=== PATIENT | male | born 1960 | race Caucasian/White ===

== ENCOUNTER 2017-09-06 11:25 | Observation (INO) ==
[2017-09-06 12:01] LABS: Hemoglobin 15.7 g/dL (12.9-16.9); Mean Corpuscular HGB Conc 33.4 g/dL (31.6-35.5); Mean Corpuscular Hemoglobin 29.5 pg (28.0-33.3); Mean Corpuscular Volume 88.2 fL (83.0-100.0); Mean Platelet Volume 10.1 fL (9.4-12.4); Platelet Count 199 K/mcL (140-400); Red Blood Count 5.33 M/mcL (4.19-5.50); Red Cell Distribution Width 13.1 % (11.5-14.5)
[2017-09-06 12:12] LABS: Bilirubin,Urine Negative (Negative); Blood,Urine Moderate (Negative); Clarity,Urine Clear (Clear); Color,Urine Yellow (Yellow); Glucose,Urine (UA) Normal (Normal); Ketones,Urine 15 mg/dL (Negative); Leukocyte Esterase,Urine Negative (Negative); Nitrite,Urine Negative (Negative); Protein,Urine Negative (Neg-Trace); Specific Gravity,Urine 1.016 (1.010-1.025); Urobilinogen,Urine Normal (Normal)
[2017-09-06 12:29] LABS: Squamous Epithelial Cell,Urine Few per lpf (None-Few)
[2017-09-06 12:33] LABS: Albumin 4.5 g/dL (3.5-5.7); Albumin/Globulin Ratio 1.6 (1.1-2.2); Bilirubin,Direct 0.1 mg/dL (0.0-0.2); Bilirubin,Indirect 0.6 mg/dL (0.0-1.2); Bilirubin,Total 0.7 mg/dL (0.3-1.0); Calcium 9.6 mg/dL (8.6-10.3); Globulin 2.9 g/dL (2.4-3.5); Potassium 4.3 mEq/L (3.5-5.1); Total Protein 7.4 g/dL (6.4-8.9)
[2017-09-06] MEDS ORDERED: 0.9 % Sodium Chloride 1,000 ML IVC ONE (12:50)
--- NOTE | 2017-09-06 12:58 | Emergency Department Note ---
Disposition Clinical Impression: Acute kidney injury, Nephrolithiasis, Intractable pain, Vomiting, Leukocytosis Disposition: Admitted As Inpatient Condition: Good Referrals: Jenni Juarez CNP [Primary Care Provider] - Forms: ED Satisfaction Letter, Work/School Release Abdominal Pain HPI - General Chief Complaint: ED Abdominal Pain Stated Complaint: kidney stones Time Seen by Provider: 09/06/17 11:53 Source: patient, family Mode of arrival: ambulatory Limitations: no limitations Nursing Notes Reviewed: Yes Vital Signs Reviewed: Yes - History of Present Illness HPI Narrative: Patient presents to the ED with right flank pain. He was seen at [facility] 2 or 3 days ago for right flank pain that onset a few days prior. Was diagnosed with a kidney stone and discharged home. He presents today for new and worsening pain. Right flank, radiates to the right lower quadrant. Associated with nausea and vomiting. No fever, chills, chest pain or shortness of breath. Does have a previous history of kidney stones but did not require retrieval and this was 8 years ago. He is otherwise healthy. Pain Scale: 9 - Related Data Home Medications Medication Instructions Recorded Confirmed Albuterol Sulfate [Albuterol 1 - 2 puff IH Q4H PRN 09/06/17 09/06/17 Inhaler] Celecoxib [Celebrex] 200 mg PO DAILY 09/06/17 09/06/17 Fluticasone/Salmeterol [Advair 1 puff IH BID 09/06/17 09/06/17 250-50 Diskus] HYDROcodone/Acet 5/325 mg [Ary 1 tab PO Q4H PRN 09/06/17 09/06/17 5-325 mg] Ondansetron HCl 4 mg PO TID PRN 09/06/17 09/06/17 Tamsulosin HCl [Flomax] 0.4 mg PO DAILY 09/06/17 09/06/17 cephALEXin [Keflex] 500 mg PO QID 09/06/17 09/06/17 Allergies Allergy/AdvReac Type Severity Reaction Status Date / Time No Known Allergies Allergy Verified 09/06/17 13:56 Review of Systems: As reviewed in the HPI. All other systems reviewed are negative or normal. Abdominal Pain PMH - Past Medical History Medical history: Reports: asthma Male Surgical History: Reports: no surgical history Psychiatric history: Reports: no psych history - Social History Smoking status: Never smoker Alcohol use: Reports: none Drug use: Reports: none Physical Exam - General Limitations: no limitations General appearance: alert, anxious - Respiratory Respiratory exam: Present: normal lung sounds bilaterally - Cardiovascular Cardiovascular exam: Present: regular rate, normal rhythm, normal heart sounds - Abdominal Exam Abdominal exam: Present: soft, Non-Tender. Absent: tenderness, distention, guarding, rebound, rigidity - Extremities Exam Extremities exam: Present: normal inspection, full ROM. Absent: tenderness, pedal edema - Back Exam Back exam: Present: CVA tenderness (R) - Neurological Exam Neurological exam: Present: alert, oriented X3 - Psychiatric Psychiatric exam: Present: anxious - Skin Skin exam: Present: warm, dry, intact, normal color Course Course Narrative: Patient presenting with right-sided flank pain, known kidney stone, but pain is worse. Labs show any Eye we will repeat his CT since we do not have access to the one at [facility]. - Reevaluation(s) Reevaluation #1: CT is back and shows a 2 x 5 mm partially obstructing right UVJ stone. This is associated with any Type. He spoke with on-call urologist, Dr. White. He was agreeable with admission to the hospitalist service and likely the patient will need stent placement. Time: 13:52 Vital Signs Temperature 97.7 F 09/06/17 11:27 Pulse Rate 105 09/06/17 11:27 Respiratory Rate 22 09/06/17 11:27 Blood Pressure 137/85 09/06/17 11:27 O2 Sat by Pulse Oximetry 97 09/06/17 11:27 Temperature 97.7 F 09/06/17 11:27 Pulse Rate 105 09/06/17 11:27 Respiratory Rate 22 09/06/17 11:27 Blood Pressure 137/85 09/06/17 11:27 O2 Sat by Pulse Oximetry 97 09/06/17 11:27 Oxygen Delivery Oxygen Delivery Room Air Abdominal Pain - Lab Data Result diagrams: 09/06/17 11:40 09/06/17 11:40 Lab Results 09/06/17 09/06/17 09/06/17 Range/Units 11:40 11:40 12:00 WBC 14.9 H (4.3-11.1) K/mcL RBC 5.33 (4.19-5.50) M/mcL Hgb 15.7 (12.9-16.9) g/dL Hct 47.0 (37.5-50.1) % MCV 88.2 (83.0-100.0) fL MCH 29.5 (28.0-33.3) pg MCHC 33.4 (31.6-35.5) g/dL RDW 13.1 (11.5-14.5) % Plt Count 199 (140-400) K/mcL MPV 10.1 (9.4-12.4) fL Sodium 136 (136-145) mEq/L Potassium 4.3 (3.5-5.1) mEq/L Chloride 102 (98-107) mEq/L Carbon Dioxide 24 (23-29) mEq/L BUN 25 H (6-20) mg/dL Creatinine 2.02 H (0.70-1.30) mg/dL Est GFR ( Amer) 42 L (> 60) Est GFR (Non-Af Amer) 34 L (> 60) BUN/Creatinine Ratio 12 (6-26) Glucose 123 H (70-105) mg/dL Calculated Osmolality 288 (280-300) Calcium 9.6 (8.6-10.3) mg/dL Total Bilirubin 0.7 (0.3-1.0) mg/dL Direct Bilirubin 0.1 (0.0-0.2) mg/dL Indirect Bilirubin 0.6 (0.0-1.2) mg/dL AST 21 (13-39) Units/L ALT 27 (7-52) Units/L Alkaline Phosphatase 97 (34-104) Units/L Serum Total Protein 7.4 (6.4-8.9) g/dL Albumin 4.5 (3.5-5.7) g/dL Globulin 2.9 (2.4-3.5) g/dL Albumin/Globulin Ratio 1.6 (1.1-2.2) Lipase 33 (11-82) Units/L Urine Color Yellow (Yellow) Urine Clarity Clear (Clear) Urine pH 6.0 (5.0-8.0) pH Units Ur Specific [place] 1.016 (1.010-1.025) Urine Protein Negative (Neg-Trace) mg/dL Urine Glucose (UA) Normal (Normal) mg/dL Urine Ketones 15 H (Negative) mg/dL Urine Blood Moderate H (Negative) Urine Nitrite Negative (Negative) Urine Bilirubin Negative (Negative) Urine Urobilinogen Normal (Normal) mg/dL Ur Leukocyte Esterase Negative (Negative) Urine Microscopic RBC 3-5 H (0-3) per hpf Ur Squamous Epith Cells Few (None-Few) per lpf S.B.A.R. - S.Erick.A.Cristal Situation: Demographics, MOA Background: Presenting Complaint, Relevant PMH, Meds, & Allergies Assessment: Vital Signs, Course and respsone to treatment, Exam Concerns, Patient/Family Expectation, Pertinant Lab Results, Outstanding Labs Recommendation: Recommendation based on pending studies, treatments, or consults S.B.A.RMary Report Given to: Dr. Darin Arevalo Repor Time: 14:19
[2017-09-06] MEDS ORDERED: *HR* HYDROmorphone (PF) 1 MG/ML SYRINGE IVP ONE (13:22)
[2017-09-06] MEDS ORDERED: Ondansetron 4 MG/2 ML VIAL IVP ONE (13:22)
--- NOTE | 2017-09-06 14:03 | Emergency Department Note ---
Disposition Clinical Impression: Acute kidney injury, Nephrolithiasis, Intractable pain, Vomiting, Leukocytosis Disposition: Admitted As Inpatient Referrals: Jenni Juarez CNP [Primary Care Provider] - Forms: ED Satisfaction Letter, Work/School Release General Adult HPI - General Chief complaint: ED Abdominal Pain Stated complaint: kidney stones Time Seen by Provider: 09/06/17 11:53 Source: patient, family Mode of arrival: ambulatory Limitations: no limitations - History of Present Illness Pain Scale: 9 - Related Data Home Medications Medication Instructions Recorded Confirmed Albuterol Sulfate [Albuterol 1 - 2 puff IH Q4H PRN 09/06/17 09/06/17 Inhaler] Celecoxib [Celebrex] 200 mg PO DAILY 09/06/17 09/06/17 Fluticasone/Salmeterol [Advair 1 puff IH BID 09/06/17 09/06/17 250-50 Diskus] HYDROcodone/Acet 5/325 mg [[place] 1 tab PO Q4H PRN 09/06/17 09/06/17 5-325 mg] Ondansetron HCl 4 mg PO TID PRN 09/06/17 09/06/17 Tamsulosin HCl [Flomax] 0.4 mg PO DAILY 09/06/17 09/06/17 cephALEXin [Keflex] 500 mg PO QID 09/06/17 09/06/17 Allergies Allergy/AdvReac Type Severity Reaction Status Date / Time No Known Allergies Allergy Verified 09/06/17 13:56 Past Medical History - Past Medical History Medical history: Reports: asthma Psychiatric history: Reports: no psych history - Social History Smoking Status: Never smoker Smokeless Tobacco Status: No Alcohol use: Reports: none Drug use: Reports: none Physical Exam - General Limitations: no limitations General appearance: alert, anxious Course Vital Signs Temperature 97.7 F 09/06/17 11:27 Pulse Rate 105 09/06/17 11:27 Respiratory Rate 22 09/06/17 11:27 Blood Pressure 137/85 09/06/17 11:27 O2 Sat by Pulse Oximetry 97 09/06/17 11:27 Temperature 97.7 F 09/06/17 11:27 Pulse Rate 105 09/06/17 11:27 Respiratory Rate 22 09/06/17 11:27 Blood Pressure 137/85 09/06/17 11:27 O2 Sat by Pulse Oximetry 97 09/06/17 11:27 Oxygen Delivery Oxygen Delivery Room Air Medical Decision Making - Lab Data Result diagrams: 09/06/17 11:40 09/06/17 11:40 Lab Results 09/06/17 09/06/17 09/06/17 Range/Units 11:40 11:40 12:00 WBC 14.9 H (4.3-11.1) K/mcL RBC 5.33 (4.19-5.50) M/mcL Hgb 15.7 (12.9-16.9) g/dL Hct 47.0 (37.5-50.1) % MCV 88.2 (83.0-100.0) fL MCH 29.5 (28.0-33.3) pg MCHC 33.4 (31.6-35.5) g/dL RDW 13.1 (11.5-14.5) % Plt Count 199 (140-400) K/mcL MPV 10.1 (9.4-12.4) fL Sodium 136 (136-145) mEq/L Potassium 4.3 (3.5-5.1) mEq/L Chloride 102 (98-107) mEq/L Carbon Dioxide 24 (23-29) mEq/L BUN 25 H (6-20) mg/dL Creatinine 2.02 H (0.70-1.30) mg/dL Est GFR ( Amer) 42 L (> 60) Est GFR (Non-Af Amer) 34 L (> 60) BUN/Creatinine Ratio 12 (6-26) Glucose 123 H (70-105) mg/dL Calculated Osmolality 288 (280-300) Calcium 9.6 (8.6-10.3) mg/dL Total Bilirubin 0.7 (0.3-1.0) mg/dL Direct Bilirubin 0.1 (0.0-0.2) mg/dL Indirect Bilirubin 0.6 (0.0-1.2) mg/dL AST 21 (13-39) Units/L ALT 27 (7-52) Units/L Alkaline Phosphatase 97 (34-104) Units/L Serum Total Protein 7.4 (6.4-8.9) g/dL Albumin 4.5 (3.5-5.7) g/dL Globulin 2.9 (2.4-3.5) g/dL Albumin/Globulin Ratio 1.6 (1.1-2.2) Lipase 33 (11-82) Units/L Urine Color Yellow (Yellow) Urine Clarity Clear (Clear) Urine pH 6.0 (5.0-8.0) pH Units Ur Specific [place] 1.016 (1.010-1.025) Urine Protein Negative (Neg-Trace) mg/dL Urine Glucose (UA) Normal (Normal) mg/dL Urine Ketones 15 H (Negative) mg/dL Urine Blood Moderate H (Negative) Urine Nitrite Negative (Negative) Urine Bilirubin Negative (Negative) Urine Urobilinogen Normal (Normal) mg/dL Ur Leukocyte Esterase Negative (Negative) Urine Microscopic RBC 3-5 H (0-3) per hpf Ur Squamous Epith Cells Few (None-Few) per lpf Attestation Statement - Attestation Attestation: I examined this patient and my medical decision-making was reviewed with the Resident Physician, Dr. Mar. I agree with the documented findings, disposition and treatment plan as described except to the extent set forth below. Patient is a 57-year-old white male who was seen at [facility] evaluated to 3 days ago for right-sided flank pain and was diagnosed with kidney stone. Patient was discharged home with medical management. Patient returns today with worsening right flank pain nausea and vomiting. Patient denies any difficulty urinating, no bowel changes, no fevers or chills, no change in the location of his pain. I agree with patient's physical exam findings as documented. Patient was in severe pain and retching on arrival so IV was established meds were provided for pain relief. Patient labs show AK I that is new, and CT shows obstructing stone in the right UVJ with moderate perinephric edema. Case was discussed with urology occupational therapy technician and they agreed to consult on the patient patient will be hospitalized to the hospitalist service for further evaluation and management.
[2017-09-06] MEDS ORDERED: *HR* Morphine 2 MG/ML SYRINGE IVP ONE (14:19)
[2017-09-06] MEDS ORDERED: Hyoscyamine 0.5 MG/ML MLS IVP ONE (14:20)
[2017-09-06] MEDS ORDERED: Naloxone 0.4 MG/ML INJ IVP PRN (16:43)
--- NOTE | 2017-09-06 16:49 | Internal Med History&Physical ---
Date of Encounter: 09/06/17 Time of Encounter: 16:43 Internal Medicine - H&P: HPI Admitted From: Home Plans for Post Hospital Care: Home History of present illness: Mr. Rodriguez is a 57 year old male with history of renal stone came to ER with worsening of right flank pain. He was seen at [facility] 2 or 3 days ago for right flank pain and he Was diagnosed with a kidney stone and discharged home. Right flank pain 10 x 10 in severity, radiates to the right lower quadrant and associated with nausea vomiting but denied fever chills chest pain shortness of breath. In ER initial lab with leukocytosis, raised creatinine and CT abdomen with finding of 2 x 5 mm partially obstructing right UVJ stone with right ureter of hydronephrosis. Your physician spoke with on-call urologist, Dr. White. He was agreeable with admission to the hospitalist service and likely the patient will need stent placement. Your physician called on-call hospitalists for the admission with diagnosis of KEVIN, obstructive uropathy. Recently Keflex was restarted on OPD basis. Patient denies headache, dizziness, diarrhea but has constipation and also feels bloated stomach. Past Med Surg Social Fam HX - Past Medical History Medical history: asthma, other Psychiatric history: no psych history - Social History Smoking Status: Never smoker Smokeless Tobacco Status: No Alcohol use: none Drug use: none Internal Medicine - H&P: Meds Albuterol Sulfate [Albuterol Inhaler] 1 - 2 puff IH Q4H PRN 09/06/17 [History] Celecoxib [Celebrex] 200 mg PO DAILY 09/06/17 [History] Fluticasone/Salmeterol [Advair 250-50 Diskus] 1 puff IH BID 09/06/17 [History] HYDROcodone/Acet 5/325 mg [[place] 5-325 mg] 1 tab PO Q4H PRN 09/06/17 [History] Ondansetron HCl 4 mg PO TID PRN 09/06/17 [History] Tamsulosin HCl [Flomax] 0.4 mg PO DAILY 09/06/17 [History] cephALEXin [Keflex] 500 mg PO QID 09/06/17 [History] 3 Allergy/AdvReac Type Severity Reaction Status Date / Time No Known Allergies Allergy Verified 09/06/17 13:56 All Systems PM: A 10-system review of systems was performed and is negative for pertinent findings except as documented above in the HPI. - Constitutional Vitals: Temp Pulse Resp BP Pulse Ox 97.6 F 87 18 153/94 97 09/06/17 16:02 09/06/17 16:02 09/06/17 16:02 09/06/17 16:02 09/06/17 16:02 Exam: General appearance: Moderate distress due to pain, restless, A&O X 3 Head exam: Atraumatic Eye exam: EOMI, PERRLA ENT exam: Moist oral mucosa Neck nontender, supple Respiratory exam: Clear to auscultation bilaterally Cardiovascular exam: Regular rate and rhythm, no systolic murmur Abdominal exam: Soft, right flank tenderness, nondistended, positive bowel sounds Extremities exam: No calf tenderness, no pedal edema Present: Skin-no rash, warm, dry, intact Neurological exam: Alert, awake, oriented 3, CN II-XII intact, no focal deficits. No facial droop. Normal speech. Normal gait. Romberg sign negative Internal Med - H&P Results - Labs CBC & Chem 7: 09/06/17 11:40 09/06/17 11:40 - Assessment and plan (1) Obstructive uropathy Current Visit: Yes Status: Acute Assessment and plan: Due to renal a stone. Symptomatic treatment with IV fluid, pain management, antiemetic and consultation with urologist who is planning to take patient OR tomorrow morning. CT abdomen reviewed. (2) Acute kidney injury Current Visit: Yes Status: Acute Assessment and plan: Most likely due to above. IV fluid, a strict I&O's. Repeat BMP. Avoid nephrotoxic drug. (3) Leukocytosis Current Visit: Yes Status: Acute Assessment and plan: Could be possible UTI or a stress related. Started Rocephin. Urine culture sent. Qualifiers: Leukocytosis type: unspecified Qualified Code(s): D72.829 - Elevated white blood cell count, unspecified (4) DVT prophylaxis Current Visit: Yes Status: Acute Assessment and plan: SCDs. - Time Spent With Patient Total time spent is greater than 50% in coordination of care (as documented) at patient's floor/unit and/or counseling patient: 25 - 35 minutes
--- NOTE | 2017-09-06 16:53 | Urology - Consult Note ---
Date of Encounter: 09/06/17 Time of Encounter: 16:51 - Assessment and Plan (1) Acute kidney injury Current Visit: Yes Status: Acute Assessment and plan: Avoid nephrotoxins. Appreciate internal medicine support. (2) Ureteral stone Current Visit: Yes Status: Acute Assessment and plan: 57-year-old man with a distal right ureteral stone. He is being admitted for pain control and monitoring of his creatinine. We will strain his urine overnight to see if he passes a stone. Otherwise, if he cannot pass a stone then I would proceed with a right ureteroscopy, laser lithotripsy, and stent placement. He was informed of the risks of the procedure including but not limited to bleeding, infection, injury to other structures, need for further procedures, stent irritation, incomplete fragmentation, ureteral perforation, need for nephrostomy tube, need for open repair, risks unforeseen, and the risk of anesthesia. He is willing to proceed. Urology CN:HPI Consult date: 09/06/17 Reason for consult Urology: Other (Right ureteral stone) History of present illness: 57-year-old man presents with a 1-2 week history of right flank pain. He tried taking Azo. This did not improve his pain. He was seen at the [facility]. In the emergency department no imaging was performed. He then came to [facility]. A CT scan was obtained which showed a 2 x 5 mm distal right ureteral stone. He also had a left renal stone. He has been admitted for further care. His creatinine was elevated to 2. He is still having the right flank pain which is rating to his groin. It is sharp. He denies having any history of previous stone surgery. He says he has passed stones previously. Past Med Surg Social Fam HX - Past Medical History Medical history: asthma, other Psychiatric history: no psych history - Social History Smoking Status: Never smoker Smokeless Tobacco Status: No Alcohol use: none Drug use: none - Family History Father Hx Family Genitourinary Disorders: Yes (Kidney stones.) Medications and Allergies Albuterol Sulfate [Albuterol Inhaler] 1 - 2 puff IH Q4H PRN 09/06/17 [History] Celecoxib [Celebrex] 200 mg PO DAILY 09/06/17 [History] Fluticasone/Salmeterol [Advair 250-50 Diskus] 1 puff IH BID 09/06/17 [History] HYDROcodone/Acet 5/325 mg [[place] 5-325 mg] 1 tab PO Q4H PRN 09/06/17 [History] Ondansetron HCl 4 mg PO TID PRN 09/06/17 [History] Tamsulosin HCl [Flomax] 0.4 mg PO DAILY 09/06/17 [History] cephALEXin [Keflex] 500 mg PO QID 09/06/17 [History] 3 Allergy/AdvReac Type Severity Reaction Status Date / Time No Known Allergies Allergy Verified 09/06/17 13:56 Review of Systems - Constitutional no chills, no fever(s) - EENT Nose, mouth and throat: no dizziness - Cardiovascular no chest pain - Respiratory no dyspnea - Gastrointestinal nausea, no vomiting - Genitourinary flank pain, no hematuria - Musculoskeletal no back pain - Integumentary no erythema, no rash - Neurological no weakness - Psychiatric no suicidal ideation - Hematologic/Lymphatic no easy bleeding - Allergic/Immunologic no wheezing Exam Initial Vital Signs Temp Pulse Resp BP Pulse Ox 97.7 F 105 22 137/85 97 09/06/17 11:27 09/06/17 11:27 09/06/17 11:27 09/06/17 11:27 09/06/17 11:27 - General physical appearance Present: well developed, well nourished, no distress - Eyes Absent: icteric - ENT Present: normal nares - Neck Present: trachea midline - Respiratory Present: normal respiratory effort - Cardiovascular Cardiovascular exam IM: RRR - Abdomen Abdomen: Present: soft, tender (Right flank.) - Integumentary Present: no rash - Neurologic Present: normal coordination - Musculoskeletal Present: normal gait Urology Results - Labs 09/06/17 11:40 09/06/17 11:40 Abnormal lab results WBC 14.9 K/mcL (4.3-11.1) H 09/06/17 11:40 BUN 25 mg/dL (6-20) H 09/06/17 11:40 Creatinine 2.02 mg/dL (0.70-1.30) H 09/06/17 11:40 Est GFR ( Amer) 42 (> 60) L 09/06/17 11:40 Est GFR (Non-Af Amer) 34 (> 60) L 09/06/17 11:40 Glucose 123 mg/dL (70-105) H 09/06/17 11:40 Urine Ketones 15 mg/dL (Negative) H 09/06/17 12:00 Urine Blood Moderate (Negative) H 09/06/17 12:00 Urine Microscopic RBC 3-5 per hpf (0-3) H 09/06/17 12:00 All other labs normal. - Imaging CT scan - abdomen: report reviewed, image reviewed CT scan - pelvis: report reviewed, image reviewed Consult Discharge Plan - Plan Referrals: Jenni Juarez CNP [Primary Care Provider] -
[2017-09-06] MEDS ORDERED: Ondansetron 4 MG/2 ML VIAL IVP PRN (16:56)
[2017-09-06] MEDS: 0.9 % Sodium Chloride 1,000 ML IVC SCH (17:29)
[2017-09-06] MEDS: *HR* Morphine 2 MG/ML SYRINGE IVP PRN ×2 (17:34→21:43)
--- NOTE | 2017-09-06 18:18 | Anesthesia Evaluation PreOp ---
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 HX Other Medical History: GERD (occasional), Other (arthritis) Anesthesia History: Past Anesthesia (no prior general anesthesia) Alcohol Use: occasionally Drug use: none Medications and Allergies Albuterol Sulfate [Albuterol Inhaler] 1 - 2 puff IH Q4H PRN 09/06/17 [History] Celecoxib [Celebrex] 200 mg PO DAILY 09/06/17 [History] Fluticasone/Salmeterol [Advair 250-50 Diskus] 1 puff IH BID 09/06/17 [History] HYDROcodone/Acet 5/325 mg [[place] 5-325 mg] 1 tab PO Q4H PRN 09/06/17 [History] Ondansetron HCl 4 mg PO TID PRN 09/06/17 [History] Tamsulosin HCl [Flomax] 0.4 mg PO DAILY 09/06/17 [History] cephALEXin [Keflex] 500 mg PO QID 09/06/17 [History] 3 Allergy/AdvReac Type Severity Reaction Status Date / Time No Known Allergies Allergy Verified 09/06/17 13:56 - Meds/Allergy Pre-op Review Medications Reviewed: Yes Allergies Reviewed: Yes Beta Blockers on Current Med List: No Anesthesia Results - Labs 09/06/17 11:40 09/06/17 11:40 Anesthesia Exam Vital Signs/O2 Sat, Most Current Temp Pulse Resp BP Pulse Ox 97.6 F 87 18 153/94 97 09/06/17 16:02 09/06/17 16:02 09/06/17 16:02 09/06/17 16:02 09/06/17 16:02 Height: 5'10"/1.78 m Weight: 175 lbs/79.4 kg Pain Scale: 4 (right flank) Pain Scale Used: Numeric (1 - 10) - HEENT Pupil (Motor): EOMI Mallampati: II Teeth: Normal Oral Opening: Greater than 3 - HUMIDIFIER OPERATOR LOC: Oriented HUMIDIFIER OPERATOR Motor: Normal RUE, Normal LUE, Normal RLE, Normal LLE, Normal Face HUMIDIFIER OPERATOR Sensory: Normal: RUE, LUE, RLE, LLE, Face - Cardiac Rhythm: Regular Murmur: None - Pulmonary Breath Sounds: bilateral Clear Respiratory Effort: Symmetrical Anesthesia Assess/Plan ASA Score: 2 Modified [place] Scale for Level of Consciousness: Cooperative, oriented, and tranquil Anesthetic Plan: General Monitoring Plan: Standard Monitors Recovery Plan: PACU
[2017-09-06] MEDS: Budesonide/Formoterol 80/4.5 MDI IH SCH (21:51)
[2017-09-07] MEDS: 0.9 % Sodium Chloride 1,000 ML IVC SCH ×2 (01:20→12:36)
[2017-09-07 06:03] LABS: Basophils % 0.3 %; Eosinophils # 0.1 K/mcL (0.0-0.6); Eosinophils % 1.4 %; Hematocrit 41.9 % (37.5-50.1); Hemoglobin 14.3 g/dL (12.9-16.9); Immature Granulocytes % 0.3 % (0-4); Lymphocytes # 1.2 K/mcL (0.6-4.6); Lymphocytes % 11.8 %; Mean Corpuscular HGB Conc 34.1 g/dL (31.6-35.5); Mean Corpuscular Hemoglobin 30.3 pg (28.0-33.3); Mean Corpuscular Volume 88.8 fL (83.0-100.0); Mean Platelet Volume 10.7 fL (9.4-12.4); Monocytes # 0.9 K/mcL (0.0-1.3); Platelet Count 175 K/mcL (140-400); Red Blood Count 4.72 M/mcL (4.19-5.50); Red Cell Distribution Width 13.2 % (11.5-14.5); Segmented Neutrophils % 77.2 %
[2017-09-07 06:21] LABS: Calcium 8.8 mg/dL (8.6-10.3); Potassium 4.1 mEq/L (3.5-5.1)
--- NOTE | 2017-09-07 07:30 | Urology Progress Note ---
Date of Encounter: 09/07/17 Time of Encounter: 07:29 - Assessment and Plan (1) Acute kidney injury Current Visit: Yes Status: Acute Assessment and plan: Creatinine is improving. Continue IV fluids. (2) Ureteral stone Current Visit: Yes Status: Acute Assessment and plan: He still has a right distal ureteral stone. Plan for right ureteroscopy, laser lithotripsy, and stent placement. He is aware of all risks. Progress Note Narrative: Doing well this morning. Pain is improved. He has not passed a stone yet. Creatinine is improving. Objective Initial Vital Signs Temp Pulse Resp BP Pulse Ox 97.7 F 105 22 137/85 97 09/06/17 11:27 09/06/17 11:27 09/06/17 11:27 09/06/17 11:09/06/17 11:27 - General physical appearance Present: well developed, well nourished, no distress - Respiratory Present: normal respiratory effort - Abdomen Present: soft - Labs 09/07/17 05:11 09/07/17 05:11 Diabetes panel 09/07/17 Range/Units 05:11 Sodium 138 (136-145) mEq/L Potassium 4.1 (3.5-5.1) mEq/L Chloride 108 H (98-107) mEq/L Carbon Dioxide 24 (23-29) mEq/L BUN 17 (6-20) mg/dL Creatinine 1.49 H (0.70-1.30) mg/dL Glucose 105 (70-105) mg/dL Calcium 8.8 (8.6-10.3) mg/dL Calcium panel 09/07/17 Range/Units 05:11 Calcium 8.8 (8.6-10.3) mg/dL Pituitary panel 09/07/17 Range/Units 05:11 Sodium 138 (136-145) mEq/L Potassium 4.1 (3.5-5.1) mEq/L Chloride 108 H (98-107) mEq/L Carbon Dioxide 24 (23-29) mEq/L BUN 17 (6-20) mg/dL Creatinine 1.49 H (0.70-1.30) mg/dL Glucose 105 (70-105) mg/dL Calcium 8.8 (8.6-10.3) mg/dL Adrenal panel 09/07/17 Range/Units 05:11 Sodium 138 (136-145) mEq/L Potassium 4.1 (3.5-5.1) mEq/L Chloride 108 H (98-107) mEq/L Carbon Dioxide 24 (23-29) mEq/L BUN 17 (6-20) mg/dL Creatinine 1.49 H (0.70-1.30) mg/dL Glucose 105 (70-105) mg/dL Calcium 8.8 (8.6-10.3) mg/dL Consult Discharge Plan - Plan Referrals: Jon White MD [Partnered Physician] -
[2017-09-07] MEDS: Budesonide/Formoterol 80/4.5 MDI IH SCH (07:34)
[2017-09-07] MEDS ORDERED: Pantoprazole 40 MG VIAL IVP SCH (09:00)
[2017-09-07] MEDS ORDERED: cefTRIAXone 1,000 MG in Water for inj. (sterile) 20 ML 10 ML IVP SCH (09:00)
[2017-09-07] MEDS ORDERED: OXYCODONE Oral CONC 10 MG/0.5 ML ORAL.SYG SL PRN ×2 (14:41→17:26)
[2017-09-07] MEDS ORDERED: *HR* Midazolam HCl 2 MG/2 ML VIAL ONE (16:09)
[2017-09-07] MEDS ORDERED: *HR* Propofol 200 MG/20 ML VIAL IVP ONE (16:09)
[2017-09-07] MEDS ORDERED: *HR* FentaNYL (PF) 100 MCG/2 ML VIAL ONE (16:09)
[2017-09-07] MEDS ORDERED: Lidocaine -MPF 2% 2 ML VIAL ONE (16:09)
[2017-09-07] MEDS ORDERED: Acetaminophen IV 1,000 MG/100 ML INFUS..BTL IVPB ONE (16:24)
[2017-09-07] MEDS ORDERED: Ondansetron 4 MG/2 ML VIAL IVP ONE (16:24)
[2017-09-07] MEDS ORDERED: *HR* OxyCODONE Immed Rel 5 MG TABLET PO PRN (16:24)
[2017-09-07] MEDS ORDERED: MORPHINE SUL Oral CONC 10 MG/0.5 ML ORAL.SYG SL PRN (16:24)
[2017-09-07] MEDS ORDERED: *HR* Promethazine 25 MG/ML VIAL IVP PRN (16:24)
--- NOTE | 2017-09-07 16:34 | Operative Note ---
Date of procedure: 09/07/17 Pre-op diagnosis: Right ureteral stone Post-op diagnosis: same Procedure: Right ureteroscopy, basket stone extraction, and stent placement. Implants: 6-Polish by 26 cm double-J stent. Complications: None Anesthesia: GETA Surgeon: Jon White Was there an assistant distribution manager present: No Estimated blood loss (cc): 1 Specimen: right ureteral stone Condition: stable Disposition: PACU Procedure in Detail: Indications: Mr. Rodriguez is a 57-year-old gentleman who has a history of right flank pain. A CT scan showed a 2x5 mm stone in the distal right ureter. He elected to undergo a right ureteroscopy, laser lithotripsy, and stent placement. He is aware of the risks of the procedure including but not limited to bleeding, infection, injury to other structures, need for further procedures, stent irritation, and the risk of anesthesia. He is willing to proceed. Procedure: After informed consent was obtained the patient was brought back to the operating room and placed in supine position. A time out was performed. General anesthesia was administered and an LMA was placed. He was then placed in the lithotomy position. He was prepped and draped in the usual sterile fashion. Cystoscopy was performed. The anterior urethra was normal. There was no evidence of bladder tumors. The ureteral orifices were in the normal orthotopic position. The Zip wire was placed in the right ureteral orifice and brought into the kidney under fluoroscopic guidance. The distal ureter was dilated with the 8/10-Polish renal dilator. I then advanced the semirigid ureteroscope into the ureter. The stone was basket extracted. A 6 Polish by 26cm JJ stent was then placed with good curl seen in the kidney and the bladder. The dangle string left intact. A knot was tied at the meatus and the excess string was cut away. The bladder was drained. The patient was then awakened from general anesthesia and brought to recovery room in good condition. All sponge, needle, and instrument counts were correct.
--- NOTE | 2017-09-07 17:10 | Internal Med Progress Note ---
<Carolyn Reyna - Last Filed: 09/07/17 18:36> Date of Encounter: 09/07/17 - Assessment and plan (1) Obstructive uropathy Status: Acute (2) Acute kidney injury Status: Acute (3) Leukocytosis Status: Acute Qualifiers: Leukocytosis type: unspecified Qualified Code(s): D72.829 - Elevated white blood cell count, unspecified (4) DVT prophylaxis Status: Acute (5) Ureteral calculus, right Status: Acute - Time Spent With Patient Total time spent is greater than 50% in coordination of care (as documented) at patient's floor/unit and/or counseling patient: - Constitutional Vitals: Temp Pulse Resp BP Pulse Ox 98 F 72 16 117/76 95 09/07/17 18:00 09/07/17 18:00 09/07/17 18:00 09/07/17 18:00 09/07/17 18:00 Internal Medicine: Result - Labs CBC & Chem 7: 09/07/17 05:11 09/07/17 05:11 Labs: Short CBC 09/07/17 Range/Units 05:11 WBC 10.4 (4.3-11.1) K/mcL Hgb 14.3 (12.9-16.9) g/dL Hct 41.9 (37.5-50.1) % Plt Count 175 (140-400) K/mcL Neutrophils # 8.0 (1.6-8.9) K/mcL BMP 09/07/17 05:11 Sodium 138 Potassium 4.1 Chloride 108 H Carbon Dioxide 24 BUN 17 Creatinine 1.49 H Glucose 105 Calcium 8.8 - Impressions Impressions Fluoroscopy 09/07/17 16:05 IMPRESSION: Intraprocedural fluoroscopic spot images as above. See separate procedure report for more information. D/ / Harsh Almonte MD / Harsh Almonte MD Interpreting Provider: Harsh Almonte MD X-Ray 09/07/17 16:05 IMPRESSION: Intraprocedural fluoroscopic spot images as above. See separate procedure report for more information. D/ / Harsh Almonte MD / Harsh Almonte MD Interpreting Provider: Harsh Almonte MD Consult Discharge Plan - Plan Referrals: Jenni Juarez CNP [Primary Care Provider] - Jon White MD [Partnered Physician] - (WEB REQUEST ENTERED. OFFICE WILL CALL WITH APPOINTMENT) - Attending Attestation I performed a history and physical examination of the patient and discussed his/ her management with the resident. I reviewed the residents note and agree with the documented findings and plan of care. Update: was notified by Urology patient tolerated procedure well. From both of our standpoints, he is stable for discharge today. Please see discharge summary for course. <Delia Almaguer - Last Filed: 09/07/17 22:09> Date of Encounter: 09/07/17 Time of Encounter: 08:50 - Assessment and plan (1) Ureteral calculus, right Status: Acute Assessment and plan: CT abdomen pelvis shows a 2 x 5 mm stone partially obstructing the right UVJ, causing mild right-sided hydroureteronephrosis and perinephric edema Urology consulted Urology planning to do right ureteroscopy, laser lithotripsy, and stent placement (2) Acute kidney injury Status: Acute Assessment and plan: Improving SCr 1.49 today, on presentation SCr was 2.02 Most likely due to the above assessment Continue IV fluids Repeat BMP. Avoid nephrotoxic drugs, renal dosing (3) Leukocytosis Status: Acute Assessment and plan: Improving Likely reactive due to stress--doubt UTI based on UA White count today 10.4, on presentation white count 14.9 Qualifiers: Leukocytosis type: unspecified Qualified Code(s): D72.829 - Elevated white blood cell count, unspecified (4) Obstructive uropathy Status: Acute Assessment and plan: See assessment above for ureteral stone Symptomatic treatment with IV fluid, pain management Urology consulted and plan to take pt to OR today (5) DVT prophylaxis Status: Acute Assessment and plan: SCDs. - Time Spent With Patient Total time spent is greater than 50% in coordination of care (as documented) at patient's floor/unit and/or counseling patient: - Subjective Interval history: Seen and examined this morning at bedside, pt was resting comfortably in his bed. Pt feels his pain is well controlled and currently has no complaints of pain. He has been straining his urine and thus far hasn't passed the kidney stone. Denies fevers, chills, chest pain, shortness of breath, abdominal pain, flank pain, nausea, vomiting, diarrhea, constipation, painful urination, hematuria. - Constitutional Vitals: Temp Pulse Resp BP Pulse Ox 98.1 F 89 16 118/83 96 09/07/17 17:02 09/07/17 17:02 09/07/17 17:02 09/07/17 17:02 09/07/17 17:02 Exam: General: well nourished, well developed, No acute distress, resting comfortably in bed HEENT: head normocephalic/atraumatic, EOMI, PERRL, moist mucus membranes, Neck: Supple, no lymphadenopathy Cardio: RRR, no murmurs, +S1/S2 Pulm: CTAB, no wheezing or rhonchi, Normal respiratory effort. Abdomen: soft, nontender, BS+ Back: normal on inspection, no CVA tenderness bilaterally Extremities: No LE edema, no cyanosis, no clubbing Neuro: AAOx3, no focal deficit, mentation intact, moves extremities spontaneously Psych: Appropriate mood and affect. Answers questions appropriately. Cooperative with exam Internal Medicine: Result - Labs CBC & Chem 7: 09/07/17 05:11 09/07/17 05:11 Labs: Short CBC 09/07/17 Range/Units 05:11 WBC 10.4 (4.3-11.1) K/mcL Hgb 14.3 (12.9-16.9) g/dL Hct 41.9 (37.5-50.1) % Plt Count 175 (140-400) K/mcL Neutrophils # 8.0 (1.6-8.9) K/mcL BMP 09/07/17 05:11 Sodium 138 Potassium 4.1 Chloride 108 H Carbon Dioxide 24 BUN 17 Creatinine 1.49 H Glucose 105 Calcium 8.8 - Impressions Impressions Fluoroscopy 09/07/17 16:05 IMPRESSION: Intraprocedural fluoroscopic spot images as above. See separate procedure report for more information. D/ / Harsh Almonte MD / Harsh Almonte MD Interpreting Provider: Harsh Almonte MD X-Ray 09/07/17 16:05
--- NOTE | 2017-09-07 17:16 | Discharge Summary ---
- NOTES TO OUTPATIENT PROVIDER Notes to Outpatient Provider: Repeat a BMP in 2-3 days. Orders not resulted at time of discharge: Pending orders 09/06/17 12:00 Culture,Urine [RM] Stat 09/07/17 16:40 Surgical Pathology [PTH] Routine 09/08/17 04:00 BMP [Basic Metabolic Panel] AM 0400 Date of Encounter: 09/07/17 Time of Encounter: 17:13 - Discharge Diagnosis (1) Obstructive uropathy Priority: Primary Status: Acute (2) Acute kidney injury Priority: Secondary Status: Acute (3) Leukocytosis Priority: Secondary Status: Acute Qualifiers: Leukocytosis type: unspecified Qualified Code(s): D72.829 - Elevated white blood cell count, unspecified (4) DVT prophylaxis Priority: Secondary Status: Acute (5) Ureteral calculus, right Priority: Secondary Status: Acute Hospital course: Mr. Rodriguez is a 57 year old male with history of renal stone came to ER with worsening of right flank pain. He was seen at [facility] 2 or 3 days ago for right flank pain and he Was diagnosed with a kidney stone and discharged home. Right flank pain 10 x 10 in severity, radiates to the right lower quadrant and associated with nausea vomiting but denied fever chills chest pain shortness of breath. In ER initial lab with leukocytosis, raised creatinine and CT abdomen with finding of 2 x 5 mm partially obstructing right UVJ stone with right ureter of hydronephrosis. Your physician spoke with on-call urologist, Dr. White. He was agreeable with admission to the hospitalist service and likely the patient will need stent placement. Your physician called on-call hospitalists for the admission with diagnosis of KEVIN, obstructive uropathy. Recently Keflex was restarted on OP basis. Patient had IV fluids, anti emetic and pain medications. Creatinine improved after IV fluids from 2.02 down to 1.49. Patient had right ureteroscopy with stone extraction and stent placement. Patient tolerated procedure well. He wad discharged home in stable condition with outpatient Urology follow-up. Renal function will likely continue to improve now and repeat BMP is advised. - Time Spent with Patient Total time spent providing and/or coordinating discharge services: - Discharge Medications Home Medications: Albuterol Sulfate [Albuterol Inhaler] 1 - 2 puff IH Q4H PRN 09/06/17 [History] Fluticasone/Salmeterol [Advair 250-50 Diskus] 1 puff IH BID 09/06/17 [History] HYDROcodone/Acet 5/325 mg [Ripton 5-325 mg] 1 tab PO Q4H PRN 09/06/17 [History] Ondansetron HCl 4 mg PO TID PRN 09/06/17 [History] Tamsulosin HCl [Flomax] 0.4 mg PO DAILY 09/06/17 [History] Allergies/Adverse Reactions: 3 Allergy/AdvReac Type Severity Reaction Status Date / Time No Known Allergies Allergy Verified 09/06/17 13:56 Date of admission: 09/06/17 14:35 Primary care physician: Jenni Juarez Discharging clinician: Carolyn Reyna - Constitutional Vitals: Temp Pulse Resp BP Pulse Ox 98.1 F 89 16 118/83 96 09/07/17 17:02 09/07/17 17:02 09/07/17 17:02 09/07/17 17:02 09/07/17 17:02 - Head Head exam: Present: atraumatic, normocephalic - Eye Eye exam: Present: PERRL, conjuntiva pink, sclera anicteric Pupils: Present: PERRL - Neck Neck exam general surgery: Present: supple, trachea midline. Absent: lymphadenopathy - Respiratory Respiratory exam: Present: CTAB. Absent: accessory muscle use, rales, rhonchi, wheezes - Cardiovascular Cardiovascular exam: Present: RRR, +S1, +S2. Absent: diastolic murmur, gallop, rubs, systolic murmur - GI/Abdominal GI/Abdominal exam: Present: normal bowel sounds, soft, no peritoneal signs. Absent: distended, tenderness - Extremities Exam Extremities exam: Present: warm, radial pulses palpable and symmetrical. Absent : calf tenderness, cyanotic, pedal edema - Neurological Exam Neurological exam: Present: CN II-XII intact, oriented X3, no focal deficits. Absent: pronater drift, facial droop, speech deficit - Skin Skin exam: Present: dry, intact - Patient Status Disposition: Home, Self-Care Condition: Good Functional capacity at discharge: independent ambulation Overall status at discharge: patient is progressing back to baseline - Discharge Instructions Follow Up With: Jon White MD [Partnered Physician] - - Diet and Activity Activity: increase activity as tolerated Diet: advance to your usual diet
--- NOTE | 2017-09-07 17:17 | Anesthesia Evaluation Post Op ---
Date of Encounter: 09/07/17 Time of Encounter: 17:05 - Vital Signs Vital Signs: Vital Signs/O2 Sat, Most Current Temp Pulse Resp BP Pulse Ox 98.1 F 89 16 118/83 96 09/07/17 17:02 09/07/17 17:02 09/07/17 17:02 09/07/17 17:02 09/07/17 17:02 Notes: Patient's vital signs have been reviewed. Patient is stable postoperatively and has adequately recovered from anesthesia. Patient is determined to have stable airway patency and respiratory function including respiratory rate and oxygen saturation. Patient has a stable heart rate, blood pressure and adequate hydration. Patients mental status is acceptable. Patients temperature is appropriate. Pain and nausea are adequately controlled. - Discharge PostOp Status: Transfer Patient to floor
[2017-09-07] MEDS ORDERED: Ondansetron 4 MG/2 ML VIAL IVP PRN (17:26)
[2017-09-07] MEDS ORDERED: Naloxone 0.4 MG/ML INJ IVP PRN (17:26)
[2017-09-07] MEDS ORDERED: 0.9 % Sodium Chloride 1,000 ML IVC SCH (17:26)
[2017-09-07 18:23] VITALS: BP 117/76
[2017-09-07] MEDS ORDERED: Budesonide/Formoterol 80/4.5 MDI IH SCH (22:00)
[2017-09-08] MEDS ORDERED: cefTRIAXone 1,000 MG in Water for inj. (sterile) 20 ML 10 ML IVP SCH (09:00)
[2017-09-08] MEDS ORDERED: Pantoprazole 40 MG VIAL IVP SCH (09:00)
== END 2017-09-07 18:54 | disposition home or self-care (01) ==
LOC: 3ANU 11:25 → EMEROO 11:25 → 3ANU 15:15
PROVIDERS: ADMIT General Practice; ATTEND Student in an Organized Health Care Education/Training Program